=== PATIENT | female | born 1955 | race Caucasian/White ===

== ENCOUNTER 2016-11-18 07:31 | Emergency (ER) | payer OTHER ==
[~2016-11-18] VITALS: Ht 172.7 cm; Wt 77.1 kg
[2016-11-18] MEDS ORDERED: ACETAMINOPHEN 325 MG TAB PO ONE (08:15)
[2016-11-18] MEDS ORDERED: ADACEL/BOOSTRIX VACCINE (DIPHTH/PERTUSS/ACELL/TETANUS)0.5ML SYR (90715) IM ONE (08:15)
[2016-11-18] MEDS ORDERED: NORCOTAB PO (08:50)
--- NOTE | 2016-11-18 09:36 | REP ---
RIGHT ANKLE SERIES: Four views of the right ankle are performed. There is a fracture of the distal fibula which is mildly displaced. Nondisplaced fracture of the distal tibia is seen posteromedially. Medial ankle mortise appears mildly widened. There is lateral soft tissue swelling. IMPRESSION: Distal tibial and fibular fractures as discussed above with widened medial mortise. Signed by Delmer De La Cruz MD 11/18/2016 04:49 P
[2016-11-18 09:57] VITALS: BP 139/78
== END 2016-11-18 10:03 | disposition home or self-care (01) ==
LOC: M ED 07:58
DX: S82.844A Nondisplaced bimalleolar fracture of right lower leg, initial encounter for closed fracture (principal); V58.4XXA Person boarding or alighting a pick-up truck or van injured in noncollision transport accident, initial encounter; Y92.014 Private driveway to single-family (private) house as the place of occurrence of the external cause

== ENCOUNTER → 2016-11-19 | Outpatient (CLI) | payer OTHER ==
[~2016-11-19] MED LIST: NORCOTAB PO
--- NOTE | 2016-11-19 21:01 | ECGEPIP ---
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
== END ==
LOC: M LAB 13:32 → M EKG 13:32
PROVIDERS: ATTEND Orthopaedic Surgery
DX: Z01.818 Encounter for other preprocedural examination (principal); S82.851A Displaced trimalleolar fracture of right lower leg, initial encounter for closed fracture; X58.XXXA Exposure to other specified factors, initial encounter; Y92.89 Other specified places as the place of occurrence of the external cause; Y93.89 Activity, other specified; Y99.8 Other external cause status

== ENCOUNTER → 2017-07-11 | Outpatient (CLI) | payer OTHER ==
--- NOTE | 2017-07-12 08:39 | DEXA ---
AP SPINE L1 - L4 0.973 -1.8 -0.6 LT FEMUR TOTAL 0.805 -1.6 -0.7 RT FEMUR TOTAL 0.596 -3.3 -2.3 TOTAL BODY TOTAL OTHER COMMENTS: There is low bone density of the spine. There is low bone density of the left hip. There is osteoporosis of the right hip. FOLLOW-UP: Recommendation for the next bone density exam: 2 years. SIDDHARTHA
== END ==
LOC: M WHC 10:09
PROVIDERS: ATTEND Orthopaedic Surgery
DX: S82.851D Displaced trimalleolar fracture of right lower leg, subsequent encounter for closed fracture with routine healing (principal)

== ENCOUNTER 2017-08-13 19:19 | Emergency (ER) | payer OTHER ==
[2017-08-13] MEDS: OXYCODONE/APAP 5MG/325MG(BULK FOR ED) 1 TABLET PO (21:00)
== END 2017-08-13 21:28 | disposition home or self-care (01) ==
LOC: M ED 19:19
DX: S82.301A Unspecified fracture of lower end of right tibia, initial encounter for closed fracture (principal); W17.89XA Other fall from one level to another, initial encounter; Y92.89 Other specified places as the place of occurrence of the external cause; Y93.89 Activity, other specified; Y99.8 Other external cause status; Z98.890 Other specified postprocedural states; Z87.891 Personal history of nicotine dependence; Z96.9 Presence of functional implant, unspecified
CPT/HCPCS: 73610

== ENCOUNTER → 2017-10-17 | Outpatient (CLI) | payer OTHER | LOC: M WHC 08:56 | DX: Z12.31 Encounter for screening mammogram for malignant neoplasm of breast (principal) | CPT/HCPCS: 77067 ==

== ENCOUNTER → 2018-06-15 | Outpatient (CLI) | payer OTHER | LOC: M WUC 14:43 | DX: M79.674 Pain in right toe(s) (principal) | CPT/HCPCS: 73630 ==

== ENCOUNTER → 2018-08-25 | Outpatient (REF) | payer OTHER ==
[~2018-08-25] MED LIST changes: +PERC5TAB12 PO
== END ==
LOC: M LABDRAW1 15:54
PROVIDERS: ATTEND Internal Medicine Endocrinology, Diabetes & Metabolism
DX: M81.0 Age-related osteoporosis without current pathological fracture (principal)

== ENCOUNTER → 2019-02-12 | Outpatient (REF) | payer OTHER ==
[~2019-02-12] MED LIST changes: +HYDR-3715 PO; -NORCOTAB PO
[2019-02-14 14:34] LABS: HPV HYBRID CAPTURE II Negative (Negative)
== END ==
LOC: M SFHCWAGY 15:08
PROVIDERS: ATTEND Nurse Practitioner Family
DX: Z12.4 Encounter for screening for malignant neoplasm of cervix (principal)
CPT/HCPCS: 87624; G0123

== ENCOUNTER → 2019-02-12 | Outpatient (CLI) | payer OTHER ==
--- NOTE | 2019-02-12 15:59 | REPMRS ---
Patient History The patient states she had a clinical breast exam in 02/2019. Patient is postmenopausal and had first child at age 34. No known family history of cancer. No Hormone Replacement Therapy 3D TOMOSYNTHESIS WAS PERFORMED. The [facility] lifetime risk for breast cancer is 8.2%. Digital Woman Screen Mammo: February 12, 2019 - Exam #: [id number] Bilateral CC and MLO view(s) were taken. Technologist: Sury Dickinson, Technologist Prior study comparison: October 17, 2017, digital woman screen mammo performed at [facility]. April 08, 2016, digital woman screen mammo performed at [facility]. FINDINGS: The breast tissue is heterogeneously dense. This may lower the sensitivity of mammography. There has been no change in the appearance of the mammogram from the prior studies. There is a moderate amount of residual fibroglandular tissue which is fairly symmetric. There is no interval development of dominant mass, areas of architectural distortion, or clustered microcalcification typical of malignancy. Assessment: BI-RADS/ACR category 1 mammogram. Negative Mammogram. Recommendation Routine screening mammogram in 1 year (for women over age 40). This mammogram was interpreted with the aid of an FDA-approved computer-aided dectection system. Electronically Signed By: Delmer De La Cruz MD 02/12/19 [id number]
== END ==
LOC: M WHC 14:33
PROVIDERS: ATTEND Nurse Practitioner Family
DX: Z12.31 Encounter for screening mammogram for malignant neoplasm of breast (principal); Z78.0 Asymptomatic menopausal state

== ENCOUNTER → 2019-02-21 | Outpatient (REF) | payer OTHER ==
[2019-02-21 19:40] LABS: CALCIUM LEVEL 9.3 MG/DL (8.8-10.2)
[2019-02-21 19:55] LABS: TOTAL 25(OH) VITAMIN D 20.1 NG/ML (30.0-100.0)
== END ==
LOC: M LABDRWAD 15:54
PROVIDERS: ATTEND Nurse Practitioner Family
DX: M81.0 Age-related osteoporosis without current pathological fracture (principal)

== ENCOUNTER → 2019-02-27 | Outpatient (CLI) | payer OTHER ==
[2019-02-27 15:45] LABS: BASO % 0.6 % (0.0-1.0); EOS # 0.1 10^3/uL (0.0-0.50); EOS % 1.8 % (0.0-3.0); HEMATOCRIT 38.7 % (36.0-47.0); LYMPH % 29.9 % (24.0-44.0); MEAN CORPUSCULAR HEMOGLOBIN 32.7 pg (27.0-33.0); MEAN CORPUSCULAR HGB CONC 33.6 g/dl (32.0-36.5); MEAN CORPUSCULAR VOLUME 97.5 fl (80.0-96.0); MONO # 0.8 10^3/uL (0.0-0.8); MONO % 11.7 % (0.0-5.0); NEUTROPHILS # 3.6 10^3/uL (1.8-7.7); NEUTROPHILS % 55.7 % (36.0-66.0); PLATELET COUNT, AUTOMATED 233 10^3/uL (150-450); RED BLOOD COUNT 3.97 10^6/uL (4.00-5.40); WHITE BLOOD COUNT 6.5 10^3/uL (4.0-10.0)
--- NOTE | 2019-02-28 09:37 | REP ---
Soft tissue neck three views: The epiglottis appears enlarged. The prevertebral soft tissues in the pharynx are unremarkable. The subglottic trachea is unremarkable. Impression: The epiglottis appears enlarged. Otherwise, negative soft tissue neck. Electronically Signed by Delmer Santiago MD 02/27/2019 02:57 P
== END ==
LOC: M WUC 13:46
PROVIDERS: ATTEND Physician Assistant
DX: R13.14 Dysphagia, pharyngoesophageal phase (principal)

== ENCOUNTER → 2019-03-29 | Outpatient (CLI) | payer OTHER ==
[~2019-03-29] MED LIST changes: +E-Z-GAS II EFFERVESCENT PACKET (SODIUM BICARB./CITRIC ACID/SIMETHICONE) As Ordered ONE; +E-Z-PAQUE 96% w/w SUSP 176GM BTL As Ordered ONE
--- NOTE | 2019-03-29 15:58 | REP ---
Examination Requested: Esophagram Barium Swallow Reason For Exam/Comment: Dysphasia Esophagram: The procedure was performed MARLENA Live, under the direct supervision of Dr. Moreira. The images were reviewed with Dr. Moreira. A single PA chest x-ray is submitted as a cartographic designer film. The superior mediastinal structures are midline. The heart size is within normal limits. The lungs are clear. Liquid barium and gas producing granules were given in the erect position as well as liquid barium in the prone oblique position, in order to perform a double contrast esophagram examination. Oral and pharyngeal stages of the examination were unremarkable. Esophageal transport is efficient and there is no esophagitis, stricture, or mucosal ring noted. There is a large hiatal hernia noted. Gastroesophageal reflux was visualized above the level of the rodger. Impression: 1. Large hiatal hernia. 2. Gastroesophageal reflux above the level of the rodger . 0.3 minutes of fluoroscopy time was utilized for this procedure. Some fluoroscopic images are performed with last image hold technology. These images require no additional radiation. Reviewed by MARLENA Fernandez 03/29/2019 01:01 P Electronically Signed by Lg Moreira DO 03/29/2019 03:49 P
== END ==
LOC: M RAD 08:55
PROVIDERS: ATTEND Specialist
DX: R13.13 Dysphagia, pharyngeal phase (principal); K44.9 Diaphragmatic hernia without obstruction or gangrene; K21.9 Gastro-esophageal reflux disease without esophagitis

== ENCOUNTER → 2019-03-29 | Outpatient (CLI) | payer OTHER ==
[~2019-03-29] MED LIST changes: -E-Z-GAS II EFFERVESCENT PACKET (SODIUM BICARB./CITRIC ACID/SIMETHICONE) As Ordered ONE; -E-Z-PAQUE 96% w/w SUSP 176GM BTL As Ordered ONE
--- NOTE | 2019-03-31 15:54 | ECGEPIP ---
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
== END ==
LOC: M EKG 09:40
PROVIDERS: ATTEND Physician Assistant
DX: Z01.810 Encounter for preprocedural cardiovascular examination (principal)

== ENCOUNTER → 2019-08-31 | Outpatient (CLI) | payer OTHER | LOC: M WHC 07:55 | PROVIDERS: ATTEND Internal Medicine Endocrinology, Diabetes & Metabolism | DX: M81.0 Age-related osteoporosis without current pathological fracture (principal) ==

== ENCOUNTER → 2020-02-14 | Outpatient (CLI) | payer OTHER ==
--- NOTE | 2020-02-14 12:31 | REPMRS ---
Patient History The patient states she had a clinical breast exam in February 2020. No known family history of cancer. No Hormone Replacement Therapy Digital Woman Screen Mammo: February 14, 2020 - Exam #: [id number] Bilateral CC and MLO view(s) were taken. Technologist: La Castañeda, Technologist Prior study comparison: February 12, 2019, bilateral digital woman screen mammo performed at [facility][1]. October 17, 2017, digital woman screen mammo performed at [facility][1]. April 08, 2016, digital woman screen mammo performed at [facility][1]. FINDINGS: There are scattered fibroglandular densities. The Volpara volumetric breast density category is:B. There has been no change in the appearance of the mammogram from the prior studies. There is a mild amount of scattered fibroglandular density which is fairly symmetric. There is no interval development of dominant mass, architectural distortion, or grouped microcalcification suggestive of malignancy. 3-D tomosynthesis shows no additional findings. Assessment: BI-RADS/ACR category 1 mammogram. Negative Mammogram. Recommendation Routine screening mammogram of both breasts in 1 year (for women over age 40). This patient's Lifetime Breast Cancer Risk is estimated at 7.9 %. This mammogram was interpreted with the aid of an FDA-approved computer-aided dectection system. Electronically Signed By: Jean Claude Mark MD 02/14/20 1025
== END ==
LOC: M WHC 10:39
PROVIDERS: ATTEND Nurse Practitioner Family
DX: Z12.31 Encounter for screening mammogram for malignant neoplasm of breast (principal)

== ENCOUNTER → 2020-05-27 | Outpatient (CLI) | payer OTHER ==
--- NOTE | 2020-05-30 13:06 | REP ---
LEFT KNEE SERIES CLINICAL: Pain with recent trauma. TECHNIQUE: AP, lateral, bilateral oblique, and sunrise views of the left knee. FINDINGS: Age-related osteopenia and generalized degenerative changes are appreciated. There is no evidence for acute fracture or dislocation. Lateral view suggests suprapatellar effusion, which requires clinical/physical correlation. IMPRESSION: * No acute fracture or dislocation appreciated. * Suprapatellar effusion suspected. MTDD
== END ==
LOC: M WUC 12:47
PROVIDERS: ATTEND Nurse Practitioner Family
DX: M25.562 Pain in left knee (principal); M25.472 Effusion, left ankle

== ENCOUNTER 2020-06-21 14:28 | Emergency (ER) | payer OTHER ==
[~2020-06-21] VITALS: Ht 172.7 cm; Wt 80.8 kg
[2020-06-21] MEDS ORDERED: OMEP-221 PO (14:44)
[2020-06-21] MEDS ORDERED: ONDANSETRON 4MG/2ML VIAL IV ONE (15:15)
[2020-06-21] MEDS: MORPHINE 4 MG/ML 1ML VIAL/SYRINGE (J2270) IV PRN ×2 (15:15→17:13)
--- NOTE | 2020-06-21 15:36 | REP ---
INDICATION: trauma. This fracture COMPARISON: None. TECHNIQUE: Four right wrist images FINDINGS: The distal radial metaphysis shows transverse fracture with complete dorsal displacement by more than a shaft width. Fracture is comminuted with intra-articular component. The carpal bones and their relationship to each other are preserved. They are articulating with the comminuted articular dorsally displaced component of the distal radius. The ulna shows no fracture. Visualized carpal and metacarpal bones show no fracture. There are degenerative changes of the 1st CMC and IP joint of the thumb. IMPRESSION: 1. Complete transverse fracture of the distal radial metaphysis with more than a full shaft width dorsal displacement of the comminuted articular aspect of the distal radius. Carpal bones are well aligned in relationship to each other and do maintain relationship to this comminuted articular displaced fragment of the distal radius. Deformity and soft tissue swelling are notable. <Electronically signed by Ephraim Gifford > 06/21/20 [id number]
[2020-06-21] MEDS ORDERED: LIDOCAINE 1% SDV 30ML VIAL SC SCH (16:45)
[2020-06-21] MEDS ORDERED: LIDOCAINE 1% MDV 20ML VIAL SC ONE (16:45)
[2020-06-21] MEDS ORDERED: NORC1TAB7 PO (18:00)
[2020-06-21 18:15] VITALS: BP 126/69
--- NOTE | 2020-06-24 14:17 | ER ---
DATE OF CONSULTATION: 06/21/2020 INDICATION: Displaced right distal radius fracture. HISTORY OF PRESENT ILLNESS: The patient is a pleasant 65-year-old right hand dominant female who is retired who was on a step stool, fell about three steps high and landed on her right wrist. She had immediate pain and deformity. She presented to the ER at [facility] with a deformity and x-rays. Buffer Machine film revealed a badly displaced comminuted intraarticular fracture of the distal radius. She was reporting significant pain in the wrist, improved with Morphine. For the patient's full past medical history, past surgical history, medications, allergies, social history, and review of systems please see the patient intake form from the ER which was reviewed. PHYSICAL EXAMINATION: A well-appearing female no distress. Alert and oriented times three. Neurologic: Appropriate mood and affect. Cardiovascular: 2+ radial pulse. Pulmonary: Nonlabored breathing. Abdomen is nondistended. Skin was intact without any open lesions but there was a major deformity with musculoskeletal exam. Right elbow is nontender. Forearm compartment soft and compressible. She could fire EPL, FDL, and IO. Sensation to light touch is intact. She denied numbness. X-rays basically an incomplete set two views of the right wrist in the trauma by revealed a badly displaced comminuted intraarticular fracture of the distal radius. ASSESSMENT AND PLAN: Paula has a comminuted displaced intraarticular fracture of the distal radius. We had a long conversation about operative and nonoperative treatment. Given that she is right hand dominant, I am going to recommend definitive operative management but recommended a provisional closed reduction. The risks and benefits of a closed reduction and casting with hematoma block were discussed and written informed consent was obtained. PROCEDURE NOTE: A time-out was performed per hospital protocol. The patient received 4 mg of IV Morphine. The right hand was marked and then cleaned with Betadine dorsally. I injected 10 mL of 1% Lidocaine without Epinephrine with a 22-gauge needle directly into the fracture site per hematoma block technique. Medication was allowed to set for five minutes. I then had the minute C-arm available and obtained pre-reduction AP and lateral views and this showed a highly comminuted intraarticular fracture with complete bayonet displacement on the lateral view with significant shortening. Classic reduction maneuver was performed with no improvement. Given the shortening of the wrist, I then attempted to fatigue the brachioradialis. I applied traction and counter- traction for three minutes, then repeated the reduction maneuver. The deformity was exaggerated, longitudinal traction applied and then I tried to push the segment from dorsal to volar and from radial to ulnar and I was unable to obtain a successful reduction. Obtaining additional mini C-arm films revealed unfortunately on the lateral view there was an articular segment consisting of the far ulnar aspect of the distal radius. Basically the portion that forms the DRUJ and that was blocking the reduction of the primary segment coming over the top. I then attempted to fatigue the muscles again and repeat the reduction maneuver, and although I could get the alignment improved on the AP with significant traction, again the reduction was blocked. At this point I felt that to place the patient into finger traps would still be unsuccessful and I did not feel that an external fixator would be of any use to her. I feel that she needs an open reduction, internal fixation. I placed her into a well-padded sugar tong splint with a mold. X-rays obtained on the minute C-arm show significant displacement despite the reduction maneuver. I offered to obtain repeat x-rays but I discussed with the patient it really was not going to change anything. It was going to show continued poor alignment. At this point my recommendation was the patient be sent down to [facility] the same night and if the hand surgery team was unable to obtain a successful closed reduction to proceed with ORIF. I should mention that on repeat neurovascular exam the patient had minimal paresthesias in the thumb but intact index and long finger, intact FDL and FDP of the index finger. No sign of acute carpal tunnel syndrome. Her fingers were pink. So I did call the on-call hand surgeon, Dr. Devaughn Dalton at [facility] and discussed the case with him and he informed me that normally he would accept the patient. However, their hospital was on diversion and he could only take patients to the OR if there was a threatened loss of limb or essentially an acute carpal tunnel syndrome which this patient did not have. He did offer to get her into the office promptly. I did clearly communicate that she still had a displaced fracture and that on the lateral view she still had bayonet shortening and he expressed understanding of that but again repeated the scenario. We obtained the direct contact number for Dr. Dalton and the patient was informed that she will keep her hand elevated and the signs and symptoms of acute carpal tunnel syndrome were carefully discussed with her on multiple occasions. She would have to return to [facility] should any of those develop. She will call the office Tuesday and hopefully be evaluated Tuesday and proceed with surgery. All of questions were answered. She agrees with the plan. SIDDHARTHA
== END 2020-06-21 18:43 | disposition home or self-care (01) ==
LOC: M ED 14:28
DX: S52.571A Other intraarticular fracture of lower end of right radius, initial encounter for closed fracture (principal); W11.XXXA Fall on and from ladder, initial encounter; Y92.098 Other place in other non-institutional residence as the place of occurrence of the external cause; F41.9 Anxiety disorder, unspecified
CPT/HCPCS: 25605; 73110; 96374; 96375; 96376; 99284; J2270; J2405

== ENCOUNTER → 2020-09-10 | Outpatient (CLI) | payer OTHER ==
[~2020-09-10] MED LIST changes: +NORC1TAB7 PO; +OMEP-221 PO
--- NOTE | 2020-09-10 15:03 | DEXAMM ---
INDICATION: M83.0 AGE REL OSTEOPOROSIS W/O FX. COMPARISON: Comparison study 31 August 2019 and 11 July 2017.. TECHNIQUE: Bone density was measured using dual-energy x-ray absorptionmetry (DEXA). FINDINGS: AP SPINE L1-L4 BMD 1.034 g/cm2 Young Adult T-Score 4-1.3 Age Matched Z-Score 0.2. LT FEMUR, TOTAL BMD 0.855 g/cm2 Young Adult T-Score -1.2 Age Matched Z-Score -0.1. LT NECK BMD 0.776 g/cm2 Young Adult T-Score -1.9 Age Matched Z-Score -0.5. RT FEMUR, TOTAL BMD 0.656 g/cm2 Young Adult T-Score -2.8 Age Matched Z-Score -1.7. RT NECK BMD 0.671 g/cm2 Young Adult T-Score -2.6 Age Matched Z-Score -1.2. IMPRESSION: There is low bone density of the spine. There is low bone density of the left hip. There is osteoporosis of the right hip. The density of the spine has decreased 6.3% since the initial exam on July 11, 2017. The density of the spine increased 2.8% since most recent exam on August 31, 2019. The density of the left hip has increased 6.2% since initial exam on July 11, 2017. The density of the left hip has increased 4.7% since most recent exam on 31 August 2019. The density of the right hip has increased 10.1% since the initial exam on 11 July 2017. The density of the right hip has decreased 1.1% since the most recent exam on 31 August 2019. FOLLOW-UP: Recommendation for the next bone density exam: 2 years. <Electronically signed by Jean Claude Mark > 09/10/20 1500
== END ==
LOC: M WHC 13:23
PROVIDERS: ATTEND Internal Medicine Endocrinology, Diabetes & Metabolism
DX: M85.88 Other specified disorders of bone density and structure, other site (principal); M85.851 Other specified disorders of bone density and structure, right thigh; M85.852 Other specified disorders of bone density and structure, left thigh

== ENCOUNTER → 2020-12-30 | Outpatient (CLI) | payer OTHER ==
--- NOTE | 2020-12-30 16:40 | REP ---
INDICATION: UNSPECIFIED LUMP IN LEFT BREAST, UNSPECIFIED QUADRANT. Left axillary swelling noted, nonpainful. Noted 2 weeks ago. Patient states the swelling has gone down somewhat. She relates that she has had 2 COVID vaccines in the left arm most recently November 25, 2020. COMPARISON: Comparison left breast mammography is from February 14, 2020, February 12, 2019, and October 17 2017. TECHNIQUE: Routine views of the left breast are obtained. True mediolateral view is added and 3D tomography is performed. Targeted left axillary left breast sonography is performed. This mammogram was interpreted with the aid of an FDA-approved computer-aided detection system. FINDINGS: Moderate fibroglandular tissue elements are seen in the left breast unchanged in distribution and extent since the most recent prior mammography. The left axillary soft tissue show homogeneous fat density. There is 1 normal appearing lymph node visible at the corner of the MLO view which appears to be partially fat replaced. No suspicious mammographic finding. No microcalcification, architectural distortion, mass or worrisome skin changes appreciated mammographically. The Volpara volumetric breast density pattern is b. Targeted ultrasound: Targeted left axillary sonography is performed. Multiple normal appearing lymph nodes are seen the largest of which measures 1.4 x 0.9 x 1.1 cm. Lymph nodes have preserved hyperechoic fat hilar architecture. Cortical margin of this lymph node is measures 3 mm in greatest thickness. Benign appearance. Axillary soft tissues are otherwise unremarkable by ultrasound. IMPRESSION: BIRADS/ACR category 2 benign left breast mammographic and sonographic findings. Normal appearing left axillary lymph nodes. This patient's Tyrer-Cuzick lifetime breast cancer risk assessment score is 7.9%. RECOMMENDATION: Repeat screening mammography recommended 1 year (for women over 40). Clinical follow-up is advised regarding the axillary symptoms. The patient letter being requested is M2. <Electronically signed by Jean Claude Mark > 12/30/20 [id number]
== END ==
LOC: M WHC 13:22
PROVIDERS: ATTEND Physician Assistant Medical
DX: N63.20 Unspecified lump in the left breast, unspecified quadrant (principal)
CPT/HCPCS: 76642; 77065; G0279

== ENCOUNTER → 2021-10-26 | Outpatient (CLI) | payer OTHER ==
[~2021-10-26] MED LIST changes: -OMEP-221 PO; +OMEP40CA5 PO
== END ==
LOC: M WUC 15:35
PROVIDERS: ATTEND Physician Assistant
DX: M25.512 Pain in left shoulder (principal)

== ENCOUNTER → 2022-02-10 | Outpatient (CLI) | payer MEDICARE, OTHER ==
[~2022-02-10] MED LIST changes: +CALC600T60 PO; +KP F1200 PO; +VITA100093 PO
== END ==
LOC: M WUC 14:23
PROVIDERS: ATTEND Student in an Organized Health Care Education/Training Program
DX: R13.10 Dysphagia, unspecified (principal)

== ENCOUNTER → 2022-03-15 | Outpatient (CLI) | payer MEDICARE, OTHER ==
[~2022-03-15] MED LIST changes: -CALC600T60 PO; -KP F1200 PO; -VITA100093 PO
== END ==
LOC: M WHC 07:00
PROVIDERS: ATTEND Family Medicine
DX: Z12.31 Encounter for screening mammogram for malignant neoplasm of breast (principal)

== ENCOUNTER → 2022-03-16 | Outpatient (CLI) | payer MEDICARE, OTHER ==
[~2022-03-16] MED LIST changes: +E-Z-GAS II EFFERVESCENT PACKET (SODIUM BICARB./CITRIC ACID/SIMETHICONE) As Ordered ONE; +E-Z-HD 98% w/w 340GM SUSP BTL As Ordered ONE; +E-Z-PAQUE 96% w/w SUSP 176GM BTL As Ordered ONE
== END ==
LOC: M RAD 07:59
PROVIDERS: ATTEND Otolaryngology
DX: K21.9 Gastro-esophageal reflux disease without esophagitis (principal)

== ENCOUNTER → 2022-04-26 | Outpatient (CLI) | payer MEDICARE ==
[~2022-04-26] MED LIST changes: +CALC600T60 PO; -E-Z-GAS II EFFERVESCENT PACKET (SODIUM BICARB./CITRIC ACID/SIMETHICONE) As Ordered ONE; -E-Z-HD 98% w/w 340GM SUSP BTL As Ordered ONE; -E-Z-PAQUE 96% w/w SUSP 176GM BTL As Ordered ONE; +KP F1200 PO; +VITA100093 PO
== END ==
LOC: M LABSMTC 09:29
PROVIDERS: ATTEND Anesthesiology
DX: Z01.818 Encounter for other preprocedural examination (principal); Z11.52 Encounter for screening for COVID-19

== ENCOUNTER 2022-04-27 11:42 | Day surgery (SDC) | payer MEDICARE ==
[~2022-04-27] VITALS: Ht 170.2 cm; Wt 78.5 kg
[~2022-04-27 11:42] MED LIST changes: +NS 1,000 ML IV ONE
[2022-04-27] MEDS ORDERED: fentaNYL 100 MCG/2 ML INJECTION As Ordered ONE (13:59)
[2022-04-27] MEDS ORDERED: propofoL 200 MG/20 ML VIAL As Ordered ONE (13:59)
[2022-04-27] MEDS ORDERED: LIDOCAINE 2% 100MG/5ML SDV (FOR ANES.) As Ordered ONE (13:59)
[2022-04-27 14:36] VITALS: BP 112/58
== END 2022-04-27 14:47 | disposition home or self-care (01) ==
LOC: M OPP 11:42
PROVIDERS: ATTEND Internal Medicine Gastroenterology
DX: Z12.11 Encounter for screening for malignant neoplasm of colon (principal); Z86.010 Personal history of colon polyps; D12.2 Benign neoplasm of ascending colon; K22.89 Other specified disease of esophagus; K44.9 Diaphragmatic hernia without obstruction or gangrene; Z79.899 Other long term (current) drug therapy; Z87.891 Personal history of nicotine dependence; M81.0 Age-related osteoporosis without current pathological fracture
CPT/HCPCS: 43235; 45385; 88305; J3010

== ENCOUNTER → 2022-10-11 | Outpatient (CLI) | payer MEDICARE, OTHER ==
[~2022-10-11] MED LIST changes: -NS 1,000 ML IV ONE
== END ==
LOC: M WHC 10:15
PROVIDERS: ATTEND Internal Medicine Endocrinology, Diabetes & Metabolism
DX: M81.0 Age-related osteoporosis without current pathological fracture (principal)

== ENCOUNTER → 2023-07-11 | Outpatient (CLI) | payer MEDICARE, OTHER | LOC: M WHC 11:00 | PROVIDERS: ATTEND Nurse Practitioner Family | DX: Z12.31 Encounter for screening mammogram for malignant neoplasm of breast (principal) ==

== ENCOUNTER → 2023-07-11 | Outpatient (REF) | payer MEDICARE, OTHER | LOC: M SFHCWAGY 15:29 | PROVIDERS: ATTEND Nurse Practitioner Family | DX: Z12.4 Encounter for screening for malignant neoplasm of cervix (principal) | CPT/HCPCS: 87624; G0123 ==

== ENCOUNTER → 2024-12-31 | Outpatient (CLI) | payer MEDICARE, OTHER | LOC: M WHC 13:04 | PROVIDERS: ATTEND Obstetrics & Gynecology | DX: Z12.31 Encounter for screening mammogram for malignant neoplasm of breast (principal); M81.0 Age-related osteoporosis without current pathological fracture; R92.333 Mammographic heterogeneous density, bilateral breasts; M85.851 Other specified disorders of bone density and structure, right thigh; M85.852 Other specified disorders of bone density and structure, left thigh ==